=== PATIENT | male | born 1955 | race Caucasian/White ===

== ENCOUNTER 2020-07-06 11:37 | Outpatient (CLI) | payer OTHER, SELFPAY ==
--- NOTE | ~2020-07-06 | NM_ITS ---
EXAMINATION: NM parathyroid w imaging DATE: 07/06/2020 14:28 INDICATION: Hyperparathyroidism. TECHNIQUE: 20 mCi Tc99m sestamibi was administered intravenously. Anterior images of the neck were ob tained immediately and at 2 hours. SPECT images of the neck were obtained. COMPARISON: None. FINDINGS: Persistent diffusely increased activity in the area of the thyroid may be secondary to para thyroid hyperplasia. No focal increased activity to suggest an adenoma. IMPRESSION: 1. No evidence of a parathyroid adenoma. Diffusely increased activity in the area of the thyroid may be secondary to parathyroid hyperplasia. Reviewed, dictated and finalized at location B. IMPRESSION: 1. No evidence of a parathyroid adenoma. Diffusely increased activity in the ar ea of the thyroid may be secondary to parathyroid hyperplasia.
== END 2020-07-06 11:38 | disposition home or self-care (01) ==
PROVIDERS: PCP Internal Medicine; Visit Provider Internal Medicine Endocrinology, Diabetes & Metabolism
DX: E21.3 Hyperparathyroidism, unspecified (principal); N20.0 Calculus of kidney; N40.1 Benign prostatic hyperplasia with lower urinary tract symptoms
CPT/HCPCS: 78070; A9500

== ENCOUNTER 2020-07-12 09:32 | Outpatient (CLI) | payer OTHER, SELFPAY ==
--- NOTE | ~2020-07-12 | DEXA_ITS ---
Bone Density Report Name: Josue Lopez Age: 64 Sex: Male Ethnicity: White Date of : 1955 Indication: hyperparathyroidism; height loss; Referring Provider: Shonna Beatty Study: Bone densitometry was performed. Exam Date: July 12, 2020 Accession number: [id number] Bone Density: Region BMD T-score Z-score Classification AP Spine (L1, L4) 1.071 -0.1 0.6 Normal Femoral Neck (Left) 0.707 -1.6 -0.6 Osteopenia Total Hip (Left) 0.951 -0.5 0.0 Normal Total Hip Bilateral Avg 0.958 -0.5 0.1 Normal Femoral Neck (Right) 0.691 -1.8 -0.7 Osteopenia Total Hip (Right) 0.965 -0.4 0.1 Normal World Health Organization criteria for BMD impression classify patients as: Normal (T-score at or above -1.0), Osteopenia (T-score between -1.0 and -2.5), or Osteoporosis (T-score at or below -2.5). 10-year Fracture Risk(1): Major Osteoporotic Fracture 6.7% Hip Fracture 1.1% Reported Risk Factors: [place] (), Neck BMD=0.691, BMI=28.7 (1) FRAX(R) Version 3.08. Fracture probability calculated for an untreated patient. Fracture probability may be lower if the patient has received treatment. Clinical Information Provided by Patient: Has used the following medications: Vitamin D Has the following medical conditions: Hyperparathyroidism Patient maximum height was 68 Does not regularly consume dairy products Drinks caffeinated beverages Impression: The patient has low bone mass, based on the Right Femoral Neck T-score. The patient has an estimated ten-year risk of hip fracture of 1.1% and an estimated ten-year risk of major fracture of 6.7%, based on the WHO FRAX algorithm. Discussion: BONE DENSITY IS LOW AT ONE OR MORE SKELETAL SITES. This patient's lowest T-score is low at one or more skeletal sites. It meets the World Health Organization's (WHO) criteria for ?low bone mass? (T-score between -1.0 and -2.5). The patient's 10-year risk of fracture as calculated by FRAX is less than the threshold where pharmacological therapy is recommended by the National Osteoporosis Foundation (NOF). However, all treatment decisions require clinical judgment and consideration of individual patient factors, including patient preferences, comorbidities, previous drug use, risk factors not captured in the FRAX model (e.g., frailty, falls, vitamin D deficiency, increased bone turnover, interval significant decline in bone density) and possible under or overestimation of fracture risk by FRAX. The patient should follow a healthful lifestyle (good nutrition with adequate calcium and vitamin D, and appropriate weight-bearing exercise). Follow-Up: Consider repeating this study in 2 to 3 years to reassess this patient's status, or sooner if there is some new clinical indication. Reported by: STACEY on 07/12/2020 10:00:00 AM.
== END 2020-07-12 09:33 | disposition home or self-care (01) ==
LOC: ANHIMG 09:35
PROVIDERS: PCP Internal Medicine; Visit Provider Internal Medicine Endocrinology, Diabetes & Metabolism
DX: E21.3 Hyperparathyroidism, unspecified (principal); N20.0 Calculus of kidney; N40.1 Benign prostatic hyperplasia with lower urinary tract symptoms; M85.852 Other specified disorders of bone density and structure, left thigh; M85.851 Other specified disorders of bone density and structure, right thigh
CPT/HCPCS: 77080

== ENCOUNTER 2022-11-30 11:54 | Outpatient (CLI) | payer MEDICARE, SELFPAY ==
[2022-11-30 12:03] LABS: Hematocrit 42.5 % (42.0-52.0); Hemoglobin 14.3 g/dL (14.0-18.0); Mean Corpuscular HGB Conc 33.6 g/dl (32-36); Mean Corpuscular Hemoglobin 27.5 pg (26-34); Mean Corpuscular Volume 81.7 fl (80-100); Mean Platelet Volume 8.6 fl (7.4-10.4); Platelet Count Result 243 k/mm3 (150-375); Red Cell Distribution Width 17.6 % (11.5-14.5); White Blood Count 9.3 K/mm3 (4.5-10.0)
[2022-11-30 13:19] LABS: Iron 50 ug/dL (49-181)
[2022-11-30 13:42] LABS: Percent Iron Saturation 13 % (20-50)
== END 2022-11-30 11:55 | disposition home or self-care (01) ==
LOC: ANHLAB 11:55
PROVIDERS: PCP Internal Medicine; Visit Provider Internal Medicine Hematology & Oncology
DX: D64.9 Anemia, unspecified (principal)
CPT/HCPCS: 36415; 82728; 83540; 83550; 85027

== ENCOUNTER 2023-10-23 14:32 | Outpatient (CLI) | payer MEDICARE, SELFPAY ==
--- NOTE | ~2023-10-23 | DEXA_ITS ---
Bone Density Report Name: TAYLOR CHERY Age: 68 Sex: Male Ethnicity: White Date of : 1955 Indication: height loss; Referring Provider: COLLEEN LUONG Study: Bone densitometry was performed. Exam Date: October 23, 2023 Accession number: [id number] Bone Density: Region BMD T-score Z-score Classification AP Spine(L1, L4) 1.188 0.9 1.8 Normal Femoral Neck (Left) 0.762 -1.2 -0.1 Osteopenia Total Hip (Left) 0.981 -0.3 0.3 Normal Femoral Neck (Right) 0.720 -1.5 -0.4 Osteopenia Total Hip (Right) 0.922 -0.7 -0.1 Normal Total Hip Mean 0.951 -0.5 0.1 Normal World Health Organization criteria for BMD impression classify patients as: Normal (T-score at or above -1.0), Osteopenia (T-score between -1.0 and -2.5), or Osteoporosis (T-score at or below -2.5). 10-year Fracture Risk(1): Major Osteoporotic Fracture 6.4% Hip Fracture 1.2% Reported Risk Factors: [place] (), Neck BMD=0.720, BMI=29.5 (1) FRAX(R) Version 3.08. Fracture probability calculated for an untreated patient. Fracture probability may be lower if the patient has received treatment. Previous Exams: Region Exam Age BMD T-score BMD Change BMD Change Date g/cm2 vs Baseline vs Previous AP Spine (L1,L4) 10/23/2023 68 1.188 0.9 0.117 (10.9%)* 0.117 (10.9%)* 07/12/2020 64 1.071 -0.1 Total Hip(Left) 10/23/2023 68 0.981 -0.3 0.030 (3.1%)* 0.030 (3.1%)* 07/12/2020 64 0.951 -0.5 Total Hip(Right) 10/23/2023 68 0.922 -0.7 -0.044 (-4.5%) -0.044 (-4.5%) 07/12/2020 64 0.965 -0.4 *Denotes significance at 95% confidence level, LSC for AP Spine = 0.022 g/cm2, LSC for Total Hip = 0.027 g/cm2 Clinical Information Provided by Patient: Has used the following medications: Vitamin D Patient maximum height was 68 Drinks caffeinated beverages Impression: The patient has low bone mass, based on the Right Femoral Neck T-score. The patient has an estimated ten-year risk of hip fracture of 1.2% and an estimated ten-year risk of major fracture of 6.4%, based on the WHO FRAX algorithm. The BMD for the Total Hip(Right) decreased, changing by -4.5% since the last DXA exam. Discussion: BONE DENSITY IS LOW AT ONE OR MORE SKELETAL SITES. This patient's lowest T-score is low at one or more skeletal sites. It meets the World Health Organization's (WHO) criteria for ?low bone mass? (T-score between -1.0 and -2.5). The patient's 10-year risk of fracture as ca
== END 2023-10-23 14:33 | disposition home or self-care (01) ==
LOC: ANHIMG 14:35
PROVIDERS: PCP Family Medicine; Visit Provider Family Medicine
DX: M85.88 Other specified disorders of bone density and structure, other site (principal); M85.852 Other specified disorders of bone density and structure, left thigh; M85.851 Other specified disorders of bone density and structure, right thigh
CPT/HCPCS: 77080

== ENCOUNTER 2024-04-28 11:33 | Outpatient (CLI) | payer MEDICARE, SELFPAY ==
[2024-04-28 11:49] LABS: Basophils Percent Auto 0.6 % (0.2-1.2); Eosinophils Absolute Auto 0.2 K/mm3 (0-0.3); Eosinophils Percent Auto 3.1 % (0-4.4); Hematocrit 43.4 % (42.0-52.0); Hemoglobin 15.7 g/dL (14.0-18.0); Immature Granulocyte Absolute 0.05 K/mm3 (0.00-0.031); Lymphocytes Percent Auto 9.7 % (18.3-44.2); Mean Corpuscular HGB Conc 36.2 g/dl (32-36); Mean Corpuscular Hemoglobin 32.4 pg (26-34); Mean Corpuscular Volume 89.7 fl (80-100); Monocytes Absolute Auto 0.6 K/mm3 (0.1-0.6); Monocytes Percent Auto 12.5 % (2.6-8.5); Neutrophils Absolute Auto 3.8 K/mm3 (1.3-6.7); Neutrophils Percent Auto 73.1 % (45.5-73.1); Platelet Count Result 202 k/mm3 (150-375); Red Blood Count 4.84 M/mm3 (4.6-6.20); Red Cell Distribution Width 13.2 % (11.5-14.5); White Blood Count 5.1 K/mm3 (4.5-10.0)
[2024-04-28 12:42] LABS: Iron 110 ug/dL (49-181)
[2024-04-28 12:46] LABS: Alanine Aminotransferase 25 U/L (6-50); Albumin Level 4.2 g/dL (3.5-5.1); Alkaline Phosphatase 54 U/L (38-126); Anion Gap 7 mmol/L (4-12); Aspartate Amino Transferase 27 U/L (17-59); Bilirubin,Total 0.9 mg/dL (0.2-1.3); Blood Urea Nitrogen 12 mg/dL (9-20); Calcium 9.2 mg/dL (8.4-10.2); Carbon Dioxide 25 mmol/L (22-30); Chloride 102 mmol/L (98-107); Estimated Glomerular Filt Rate > 60; Glucose 99 mg/dL (65-110); Potassium 3.5 mmol/L (3.4-5.0); Sodium 134 mmol/L (137-145)
[2024-04-28 12:53] LABS: Percent Iron Saturation 35 % (20-50)
== END 2024-04-28 11:34 | disposition home or self-care (01) ==
LOC: ANHLAB 11:35
PROVIDERS: PCP Family Medicine; Visit Provider Internal Medicine Hematology & Oncology
DX: D64.9 Anemia, unspecified (principal)
CPT/HCPCS: 36415; 80053; 82728; 83540; 83550; 85025

== ENCOUNTER 2025-06-02 10:47 | Outpatient (CLI) | payer MEDICARE, SELFPAY ==
--- OUTSIDE RECORDS SUMMARY | 2025-06-02 10:53 | XMS_ITS | Encounter Summary ---
Author Organization [facility] Address [address] [place] [address] Phone Care Team Providers Care Cylinder Grinder Name Role Phone Zeeshan Starks DO Primary Care Provider [phone] Aj Murdock MD Unavailable [phone] Andrew Andrade MD Primary Care Provider [phone] Reason for Visit * Reason Comments Medication Refill Encounter Details Date Type Department Care Team (Late st Contact Info) Description 09/09/2023 Refill [facility] [address]2 [place] [phone] Aj Murdock MD [address] [place] [address] Medication Refill Social History Tobacco Use Types Packs/Day Years Used Date Smoking Tobacco: Former Cigarettes 1 25 1 12/04/1976 - 10/04/2002 Smokeless Tobacco: Never Alcohol Use Standard Drinks/Week Comments Yes 0 (1 standard drink = 0.6 oz pur e alcohol) Drinks weekend Sexually Active Control Partners Comments Yes Sex and Gender Information Value Date Recorded Sex Assigned at Not on file Legal Sex Male 11:38 PM CDT Gender Identity Not on file Sexual Orientation Not on file 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 Routing to provider due to Dr. Murdock is out of office. Please review. Requested Prescriptions Pending Prescriptions Disp Refills azaTHIOprine (IMURAN) 50 MG Tablet [Pharmacy Med Name: azaTHIOprine 50 MG Oral Tablet] 90 Tablet 0 Sig: Take 3 tablets by mouth once daily Not Delegated - Off Protocol Failed - 09/09/2023 9:44 AM Failed - This refill cannot be delegated Passed - Visit with relevant provider in past 12 months or upcoming 90 days Recent Visits Date Type Provider Dept 03/28/23 Office Visit Aj Murdock MD [facility] Showing recent visits within past 365 days and meeting all other requirements Future Appointments No visits were found meeting these conditions. Showing future appointments within next 90 days and meeting all other requirements documented in this encounter Plan of Treatment Not on file documented as of this encounter Visit Diagnoses Diagnosis Crohn's disease with complication, unspecified gastrointestinal tract location (HCC) documented in this encounter Care Teams Cylinder Grinder Relationship Specialty Start Date End Date Zeeshan Starks DO [address] [address] PCP - General Internal Medicine 08/28/19 01/07/25 Andrew Andrade MD [address] [place] [address] PCP - General Family Medicine 01/08/25 Aj Murdock MD [address] [place] [address] Consulting Physician Gastroenterology 08/23/22 documented as of this encounter
--- OUTSIDE RECORDS SUMMARY | 2025-06-02 10:53 | XMS_ITS | Encounter Summary ---
Author Organization [facility] Address [address] [place] [address] Phone Care Team Providers Care Level Vial Sealer Name Role Phone Zeeshan Starks DO Primary Care Provider [phone] Aj Murdock MD Unavailable [phone] Andrew Andrade MD Primary Care Provider [phone] Reason for Visit * Reason Comments Medication Refill Encounter Details Date Type Department Care Team (Late st Contact Info) Description 01/22/2024 Refill [facility] - Gastroenter[facility] [address] [place] [phone] Huma Ulloa APRN, TURFGRASS MANAGEMENT PROFESSOR [address] [place] [address] Medication Refill Social History Tobacco Use Types [...] 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 Requested Prescriptions Pending Prescriptions Disp Refills azaTHIOprine (IMURAN) 50 MG Tablet [Pharmacy Med Name: azaTHIOprine 50 MG Oral Tablet] 270 Tablet 0 Sig: Take 3 tablets by mouth once daily Not Delegated - Off Protocol Failed - 01/22/2024 7:27 PM Failed - This refill cannot be delegated Passed - Visit with relevant provider in past 12 months or upcoming 90 days Recent Visits Date Type Provider Dept 03/28/23 Office Visit Aj Murdock MD [facility] Showing recent visits within past 365 days and meeting all other requirements Future Appointments No visits were found meeting these conditions. Showing future appointments within next 90 days and meeting all other requirements RY CONTROL OPERATOR HELPER documented in this encounter Plan of Treatment Not on file documented as of this encounter Visit Diagnoses Diagnosis Crohn's disease with complication, unspecified gastrointestinal tract location (HCC) documented in this encounter Care Teams Level Vial Sealer Relationship Specialty Start Date End Date Zeeshan Starks DO [address] [facility] [address] [address] PCP - General Internal Medicine 08/28/19 01/07/25 Andrew Andrade MD [address] [place] [address] PCP - General Family Medicine 01/08/25 Aj Murdock MD [address] [place] [address] Consulting Physician Gastroenterology 08/23/22 documented as of this encounter
--- OUTSIDE RECORDS SUMMARY | 2025-06-02 10:53 | XMS_ITS | Encounter Summary ---
Author Organization [facility] Address [address] [place] [address] Phone Care Team Providers Care Byproduct Engineer Name Role Phone Zeeshan Starks DO Primary Care Provider Aj Murdock MD Unavailable [phone] Andrew Andrade MD Primary Care Provider [phone] Reason for Visit * Reason Comments Medication Refill Encounter Details Date Type Department Care Team (Late st Contact Info) Description 04/25/2023 Refill [facility] - Gastroenterology 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 No / Unsure 03/28/2023 12:59 PM CDT documented as of this encounter Miscellaneous Notes * Telephone Encounter - Yana Enriquez RN - 04/25/2023 1:33 PM CDT Medication failed the protocol, provider to review and approve the medication order if appropriate. Requested Prescriptions Pending Prescriptions Disp Refills azaTHIOprine (IMURAN) 50 MG Tablet [Pharmacy Med Name: azaTHIOprine 50 MG Oral Tablet] 90 Tablet 0 Sig: Take 3 tablets by mouth once daily Not Delegated - Off Protocol Failed - 04/25/2023 9:11 AM Failed - This refill cannot be delegated Passed - Visit with relevant provider in past 12 months or upcoming 90 days Recent Visits Date Type Provider Dept 03/28/23 Office Visit Aj Murdock MD [facility] [place] 08/23/22 Office Visit Aj Murdock MD [facility] [place] 07/12/22 Office Visit Aj Murdock MD [facility] [place] Showing recent visits within past 365 days [...] (HCC) documented in this encounter Care Teams Byproduct Engineer Relationship Specialty Start Date End Date Zeeshan Starks DO [address] [facility] [address] [address] PCP - General Internal Medicine 08/28/19 01/07/25 Andrew Andrade MD [address] [place] [address] PCP - General Family Medicine 01/08/25 Aj Murdock MD [address] [place] [address] Consulting Physician Gastroenterology 08/23/22 documented as of this encounter
--- OUTSIDE RECORDS SUMMARY | 2025-06-02 10:53 | XMS_ITS | Referral Summary ---
Author Organization [facility] Address [address] [place] [address] Care Team Providers Care Manager Technical Services Name Role Phone Andrew Andrade MD Primary Care Provider [phone] Encounters Date Type Department Care Team Description 05/19/2025 Telephone [facility] Gastroenterology at [address] [place] [phone] Kina Finney Prep Instructions 04/15/2025 Telephone [facility] Gastroenterology at [address] [place] [address] Kathryn Morel MA Schedule Colonoscopy 04/15/2025 11:15 AM CDT Office Visit [facility] Gastroenterology at [address] [place] [phone] Valeriy Carter NP Crohn's disease of both small and large intestine without complication (HCC) (Primary Dx); Gastroesophageal reflux disease, unspecified whether esophagitis present; Tubular adenoma of colon from Last 3 Months Allergies No known active allergies Medications multivitamin with minerals tablet Take 1 tablet by mouth daily Active modafiniL (PROVIGIL) 200 mg tablet Take 1 tablet (200 mg total) by mouth every morning 03/24/2025 Active omega-3 fatty acids (LOVAZA) 1 gram capsule Take 1 capsule (1 g total) by mouth daily Active ZINC OXIDE, BULK, MISC Take 1,000 mcg by mouth Active azaTHIOprine (IMURAN) 50 mg tablet Take 1 tablet (50 mg total) by mouth 3 (three) times a day with meals Active icosapent ethyL (VASCEPA) 1 gram capsule Take 2 capsules (2 g total) by mouth 2 (two) times a day Active ferrous sulfate ER 324 mg (65 mg iron) EC tabletIndicatio ns:Iron Deficiency Anemia Take 65 mg by mouth Active B complex 04-nqfoo-R-biot -zinc 3-801-513-50 qc-de-ayi-mg tablet Take by mouth Active ergocalciferol (VITAMIN D) 50,000 unit capsule Take 1 capsule (50,000 Units total) by mouth once a week Active lisinopril-hydr oCHLOROthiazide (ZESTORETIC) 10-12.5 mg per tablet Take 1 tablet by mouth daily 02/14/2025 Active meloxicam (MOBIC) 7.5 mg tablet TAKE 1 TABLET BY MOUTH ONCE DAILY DIRECTED WITH FOOD Active omeprazole (PriLOSEC) 40 mg capsule Take 1 capsule (40 mg total) by mouth daily Active Active Problems Problem Noted Date Diagnosed Date Crohn's disease of both smal l and large intestine without complication 04/15/2025 Low bone mass 04/04/2022 Hypercalcemia 09/13/2020 Hyperparathyroidism 08/26/2020 Renal stone 01/08/2020 Rotator cuff tear 11/03/2015 Resolved Problems Problem Noted Date Diagnosed Date Resolved Date Crohn's disease of ileum without complication 04/15/20 25 04/15/2025 Crohn's disease without complication 08/31/2020 04/15/2025 Immunizations Immunization Administration Dates Next Due Influenza, Quadrivalent, Hig h Dose, Preservative Free, Intrr 09/06/2022,09/06/2021 Influenza, Quadrivalent, Rec ombinant, Egg Free, Preservative Free, Intramuscular 09/01/2020,09/04/2019 Influenza, Trivalent, High D ose, Split, Preservative Free, Intramuscular 12/17/2024 Pneumococcal Polysaccharide PPV23 05/24/2023 Tdap 12/17/2024 ZOSTER LIVE 05/24/2023 ZOSTER Recombinant 06/17/2024 Social History Tobacco Use Types Packs/Day Years Used Date Smoking Tobacco: Never Smokeless Tobacco: Never Tobacco Cessation:Counseling Given: Not Answered Sex and Gender Information Value Date Recorded Sex Assigned at Not on file Legal Sex Male 5:23 PM [employer] Gender Identity Not on file Sexual Orientation Not on file Last Filed Vital Signs Vital Sign Reading Time Taken Comments Blood Pressure 154/94 04/15/2025 11:17 AM CDT Pulse 65 04/15/2025 11:17 AM CDT Temperature - - Respiratory Rate - - Oxygen Saturation 95% 04/15/2025 11: 17 AM CDT Inhaled Oxygen Concentration - - Weight 81.1 kg (178 lb 12.8 oz) 025 11:17 AM CDT Height 172.7 cm (5' 8) 04/15/2025 11:1 7 AM CDT Body Mass Index 27.19 04/15/2025 11:17 AM CDT Plan of Treatment Upcoming Encounters Date Type Department Care Team (Late st Contact Info) Description 06/30/2025 12:00 PM CDT Hospital Encounter [address] [address] Go Charles DO [address] [facility] [place] [address] 06/30/2025 12:00 PM CDT - 06/30/2025 12:30 PM CDT Surgery [address] [address] Go Charles DO [address] [facility] [place] [address] COLONOSCOPY Scheduled Procedures Name Priority Associated Diagnoses Date/Ti me COLONOSCOPY Crohn's disease of both small and large intestine without complication (HCC) 06/30/2025 12:00 PM CDT Insurance [employer] MEDICARE Care Teams Manager Technical Services Relationship Specialty Start Date End Date Andrew Andrade MD [address] [place] [address] PCP - General Family Practice 04/15/25
--- OUTSIDE RECORDS SUMMARY | 2025-06-02 10:53 | XMS_ITS | Encounter Summary ---
Author Organization [facility] Address [address] [place] [address] Care Team Providers Care Tare Worker Name Role Phone Andrew Andrade MD Primary Care Provider [phone] Encounter Details Date Type Department Care Team (Late Contact Info) Description 06/02/2025 Orders Only [facility] Oncology and Hematology - [address] [place] [address] Jun Stuart MD [address] [place] [phone] Chronic anemia (Primary Dx) Social History Tobacco Use Types Packs/Day Years Used Date Smoking Tobacco: Former Cigarettes 1 20 0 11/25/1981 - 11/25/2001 Smokeless Tobacco: Never Alcohol Use Standard Drinks/Week Comments Yes 0 (1 standard drink = 0.6 oz pur e alcohol) occasionally Sex and Gender Information Value Date Recorded Sex Assigned at Not on file Legal Sex Male 4:48 PM CDT Gender Identity Not on file Sexual Orientation Not on file documented as of this encounter Plan of Treatment Upcoming Encounters Date Type Department Care Team (Late st Contact Info) Description 06/10/2025 3:45 PM CDT Office Visit [facility] Oncology and Hematology - [address] [place] [address] Jun Stuart MD [address] [place] [address] Scheduled Orders Name Type Priority Associated Diagnoses Orde r Schedule CBC WITH DIFFERENTIAL Lab Stat Chronic anemia Expected: 06/02/2025, Expires: 06/02/2026 IRON, TIBC, AND PERCENT SATURATION Lab Stat Chronic anemia Expected: 06/02/2025, Expires: 06/02/2026 documented as of this encounter Visit Diagnoses Diagnosis Chronic anemia- Primary Anemia, unspecified documented in this encounter Care Teams Tare Worker Relationship Specialty Start Date End Date Andrew Andrade MD [address] [place] [phone] PCP - General Family Practice 07/11/23 documented as of this encounter
--- OUTSIDE RECORDS SUMMARY | 2025-06-02 10:53 | XMS_ITS | Encounter Summary ---
Author Organization [facility] Address [address] [place] [address] Phone Care Team Providers Care Analytical Strategist Name Role Phone Zeeshan Starks DO Primary Care Provider [phone] Aj Murdock MD Unavailable [phone] Andrew Andrade MD Primary Care Provider [phone] Reason for Visit * Reason Comments Medication Refill Encounter Details Date Type Department Care Team (Late st Contact Info) Description 10/20/2023 Refill [facility] - Gastroenter[facility] [address] [place] [phone] Huma Ulloa APRN, TAPE FASTENER MACHINE OPERATOR [address] [place] [address] Medication Refill Social History Tobacco Use Types [...] 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 Requested Prescriptions Pending Prescriptions Disp Refills azaTHIOprine (IMURAN) 50 MG Tablet [Pharmacy Med Name: azaTHIOprine 50 MG Oral Tablet] 90 Tablet 0 Sig: Take 3 tablets by mouth once daily Not Delegated - Off Protocol Failed - 10/20/2023 1:19 PM Failed - This refill cannot be delegated Passed - Visit with relevant provider in past 12 months or upcoming 90 days Recent Visits Date Type Provider Dept 03/28/23 Office Visit Aj Murdock MD [facility] Showing recent visits within past 365 days and meeting all other requirements Future Appointments No visits were found meeting these conditions. Showing future appointments within next 90 days and meeting all other requirements GUITAR TEACHER documented in this encounter Plan of Treatment Not on file documented as of this encounter Visit Diagnoses Diagnosis Crohn's disease with complication, unspecified gastrointestinal tract location (HCC) documented in this encounter Care Teams Analytical Strategist Relationship Specialty Start Date End Date Zeeshan Starks DO [address] [facility] [address] [address] PCP - General Internal Medicine 08/28/19 01/07/25 Andrew Andrade MD [address] [place] [address] PCP - General Family Medicine 01/08/25 Aj Murdock MD [address] [place] [address] Consulting Physician Gastroenterology 08/23/22 documented as of this encounter
--- OUTSIDE RECORDS SUMMARY | 2025-06-02 10:53 | XMS_ITS | Clinical Summary ---
Author Organization [facility] Medical Office Building B Address [address] [place] [address] Care Team Providers Care Security Control Assessor Name Role Phone Andrew Andrade MD Primary Care Provider [phone] Allergies No known active allergies Medications multivitamin [...] 65 mg by mouth Active B complex 59-bqtvn-C-biot -zinc [phone] xi-wb-ggu-mg tablet Take by mouth Active ergocalciferol (VITAMIN [...] 04/15/2025 Crohn's disease without complication 08/31/2020 04/15/2025 Encounters Date Type Department Care Team Description 05/19/2025 Telephone [facility] Gastroenterology at [address] [place] [address] Kina Finney Prep Instructions 04/15/2025 11:15 AM CDT Office Visit [facility] Gastroenterology at [address] [place] [address] Valeriy Carter NP Crohn's disease of both small and large intestine without complication (HCC) (Primary Dx); Gastroesophageal reflux disease, unspecified whether esophagitis present; Tubular adenoma of colon 04/15/2025 Telephone [facility] Gastroenterology at [address] [place] [address] Kathryn Morel MA Schedule Colonoscopy from Last 3 Months Immunizations Immunization Administration Dates Next Due Influenza, Quadrivalent, Hig h Dose, Preservative Free, Intrr 09/06/2022,09/06/2021 Influenza, Quadrivalent, Rec ombinant, Egg Free, Preservative Free, Intramuscular 09/01/2020,09/04/2019 Influenza, Trivalent, High D ose, Split, Preservative Free, Intramuscular 12/17/2024 Pneumococcal Polysaccharide PPV23 05/24/2023 Tdap 12/17/2024 ZOSTER LIVE 05/24/2023 ZOSTER Recombinant 06/17/2024 Surgical History Surgery Date Site/Laterality Comments COLONOSCOPY CYSTOSCOPY SHOULDER ARTHROSCOPY Left x2 CYSTOSCOPY INSERTION / REMOVAL STENT / STONE BACK SURGERY CARPAL TUNNEL RELEASE Bilateral THYROIDECTOMY Left Medical History Medical History Date Comments Crohn's disease (HCC) Hyperparathyroidism Adenomatous colon polyp Kidney stones HTN (hypertension) Spinal stenosis Hypothyroid GERD (gastroesophageal reflux disease) Vitamin D deficiency Low bone mass Social History Tobacco Use Types Packs/Day Years Used Date Smoking Tobacco: Never Smokeless Tobacco: Never Tobacco Cessation:Counseling Given: Not Answered Sex and Gender Information Value Date Recorded Sex Assigned at Not on file Legal Sex Male 5:23 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 Gender Identity Not on file Sexual Orientation Not on file Obstetrics History Last Filed Vital Signs Vital Sign Reading [...] Description 06/30/2025 12:00 PM CDT Hospital Encounter [address] [address] Go Charles DO [address] [facility] [address] [place] [address] 06/30/2025 12:00 PM CDT - 06/30/2025 12:30 PM CDT Surgery [address] [address] Go Charles DO [address] [facility] [address] [place] [address] COLONOSCOPY Scheduled Procedures Name Priority Associated Diagnoses Date/Ti me COLONOSCOPY Crohn's disease of both small and large intestine without complication (HCC) 06/30/2025 12:00 PM CDT Health Maintenance Due Date Last Done Comments Colon Cancer Screening-Colonoscopy 1955 Depression Screening 1955 Fall Risk Assessment 1955 Hepatitis C Screening 1955 Prostate Cancer Screening-PSA 1955 Hepatitis B Screening 1973 Well Visit 65+ 2020 Pneumococcal vaccine 65+ (2 of 2 - PCV) 05/24/2024 05/24/2023 Covid-19 Vaccine (4 - 2023-2 5 season) 2024 11/29/2021, 04/03/2021, 03/13/2021 Zoster Vaccine (2 of 2) 08/12/2024 06/17/2024, 05/24 DTaP/Tdap/Td Vaccine (2 - Td or Tdap) 12/17/2034 12/17/2024 Influenza Vaccine Completed 12/17/2024, , 09/06/2021, Additional history exists Insurance AETNA MEDICARE Care Teams Security Control Assessor Relationship Specialty Start Date End Date Andrew Andrade MD [address] [place] [address] PCP - General Family Practice 04/15/25
--- OUTSIDE RECORDS SUMMARY | 2025-06-02 10:53 | XMS_ITS | Clinical Summary ---
Author Organization [facility] Address [address] [place] [address] Phone Care Team Providers Care Blueprinting Machine Operator Name Role Phone Aj Murdock MD Unavailable [phone] Andrew Andrade MD Primary Care Provider [phone] Allergies No known active allergies Medications levothyroxine (SYNTHROID) 100 MCG Tablet Take 100 mcg by mouth every morning. Active omeprazole (PRILOSEC) 40 MG CAPSULE DELAYED RELEASE Take 40 mg by mouth every morning. Active MULTIPLE VITAMIN PO Take 1 Tablet by mouth daily. HOLD FOR 5 DAYS PRIOR TO PROCEDURE Active lisinopril-hydroCHLO ROthiazide (PRINZIDE, ZESTORETIC) 10-12.5 MG Tablet Take 1 Tab by mouth every morning. Active Cyanocobalamin (VITAMIN B 12 PO) Take 1,000 mcg by mouth every morning. GUMMIES Active Vitamin D3 (CHOLECALCIFEROL) 125 MCG Tablet Take 1 Cap by mouth every morning. 07/27/20 20 Active Icosapent Ethyl 1 g Capsule Take by mouth. Active folic acid (FOLVITE) 1 MG Tablet Take 1 Tablet by mouth daily. 90 Tablet 1 11/06/20 22 Active azaTHIOprine (IMURAN) 50 MG TabletIndications:Cr ohn's disease with complication, unspecified gastrointestinal tract location (HCC) Take 3 tablets by mouth once daily 270 Tablet 03/12/20 25 Active Active Problems Problem Noted Date Diagnosed Date Long-term use of high-risk medication 04/04/2022 Low bone mass 04/04/2022 Crohn's disease without complication 08/31/2020 Renal stone 01/08/2020 Rotator cuff tear 11/03/2015 Encounters Date Type Department Care Team Description 03/11/2025 Refill [facility] - Gastroenterology [facility] [address] [place] [address] Huma Ulloa APRN, CREATIVE SERVICES WRITER Medication Refill from Last 3 Months Immunizations Immunization Administration Dates Next Due Influenza, High-dose, Quadrivalent 09/06/2021 Influenza, Recombinant, Quadrivalent,injectable, Pf 09/01/2020,09/04/2019 Family History Medical History Relation Name Comments Cancer Father colon Diabetes Father Hypertension Father Osteoarthritis Father Cancer Mother Lung Hypertension Mother Osteoarthritis Mother Relation Name Status Comments Father Mother Social History Tobacco Use Types Packs/Day Years Used Date Smoking Tobacco: Former Cigarettes 1 25 1 12/04/1976 - 10/04/2002 Smokeless Tobacco: Never Tobacco Cessation:Counseling Given: Not Answered Alcohol Use Standard Drinks/Week Comments Yes 0 (1 standard drink = 0.6 oz pur e alcohol) Drinks weekend Sexually Active Control Partners Comments Yes Sex and Gender Information Value Date Recorded Sex Assigned at Not on file Legal Sex Male 11:38 PM CDT Gender Identity Not on file Sexual Orientation Not on file 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 Not on file Not on file Last Filed Vital Signs Vital Sign Reading Time Taken Comments Blood Pressure 140/89 01/08/2025 10:30 PM AQUATICS ASSISTANT DEPARTMENT HEAD Pulse 87 01/08/2025 10:30 PM AQUATICS ASSISTANT DEPARTMENT HEAD Temperature 36.3 C (97.4 F) 01/08/2025 7:44 PM AQUATICS ASSISTANT DEPARTMENT HEAD Respiratory Rate 18 01/08/2025 10:30 PM AQUATICS ASSISTANT DEPARTMENT HEAD Oxygen Saturation 100% 01/08/2025 10:30 PM AQUATICS ASSISTANT DEPARTMENT HEAD Inhaled Oxygen Concentration - - Weight 79.4 kg (175 lb) 01/08/2025 7:44 PM AQUATICS ASSISTANT DEPARTMENT HEAD Height 172.7 cm (5' 8) 01/08/2025 7:44 PM AQUATICS ASSISTANT DEPARTMENT HEAD Body Mass Index 26.61 01/08/2025 7:44 PM AQUATICS ASSISTANT DEPARTMENT HEAD Plan of Treatment Health Maintenance Due Date Last Done Comments Cologuard 2000 Immunochemical Fecal Occult Blood 2000 PSA Discussion 2010 Respiratory Syncytial Virus (RSV) Immunization (Adult) (1 - Risk 60-74 years 1-dose series) 2015 AAA Screening Ultrasound 2020 Colonoscopy 05/22/2023 05/22/2022, 12/2019, 08/28/2019, Additional history exists Colorectal Cancer Screening 05/22/2023 Pneumococcal Immunization (50+ years) (2 of 2 - PCV) 05/24/2024 05/24/2023 SARS-COV-2 Immunization (4 - season) 2024 11/29/2021, 04/03/2021, 03/13/2021 Zoster Immunization (2 of 2) 08/12/2024 06/17/2024, 05/24/2023 Influenza Immunization (#1) 07/26/202511/26, 09/06/2022, 09/06/2021, Additional history exists Hepatitis C Virus (HCV) Screening Completed 04/04/2022, 10/26/2020, 08/31/2020, Additional history exists Pneumococcal Immunization Combined Discontinued 05/24/2023 DTaP/Tdap/Td Immunization Discontinued 12/17/2024 TdaP Immunization Completed 12/17/2024 Hepatitis B Immunization Aged Out No longer eligible based on patient's age to complete this topic Human Papillomavirus (HPV) Immunization Aged Out No longer eligible based on patient's age to complete this topic Meningococcal Immunization (ACWY) Aged Out No longer eligible based on patient's age to complete this topic Rotavirus Immunization Aged Out No lo nger eligible based on patient's age to complete this topic Medical Devices Implanted Type Area Foreign Language Stenographer Device Identifier Shelf Expiration Date Model / Serial / Lot Stent Ureteral 6fr 2.1fr 26cm 2 Pigtail Curve 2 Durometer Taper Tip Loprfl Graduated Polaris Ultra - [id number] Implanted:Qty : 1 on 01/08/2020 by Brie Grimm MD at [facility] IMPLANT Left: Ureter [employer] 10/18/2022 [id number] / [id number] / [id number] Description:STRINGS ATTACHED Procedures Procedure Name Priority Date/Time Associated Diagnosis Comments HEPATITIS C ANTIBODY Routine 04/04/2022 10:56 AM CDT Crohn's disease without complication, unspecified gastrointestinal tract location (HCC) Long-term use of high-risk medication from Last 3 Months or Most Recently Relevant to Health Maintenance Results * HEPATITIS C ANTIBODY (04/04/2022 10:56 AM CDT) hepatitis C antibody 0.12 <1 S/CO [facility] ARCH [id number] 04/04/2022 9:55 PM CDT [facility] Comment: Signal/Cutoff ratio < 0.79 is Nondetected Signal/Cutoff ratio 0.80-0.99 is Grayzone Signal/Cutoff ratio > 0.99 is Detected Supplemental assays are recommended if signal/cutoff ratio is >/=1.00. Signal/cutoff ratio result >/= 5.00 is 97% predictive of positivity for recombinant immunoblot assay (RIBA) and will be reported to the [place] Department of Public Health as required. Blood Venipuncture / Unknown 04/04/2022 10:56 AM CDT 04/04/2022 10:56 AM CDT us Nirmala Joseph PAC CHEMISTRY ORDERABLES Allyson kelley Result [facility] [address] [place] [address], from Last 3 Months or Most Recently Relevant to Health Maintenance Insurance MEDICARE C AETNA Care Teams Blueprinting Machine Operator Relationship Specialty Start Date End Date Andrew Andrade MD [address] [place] [id number] PCP - General Family Medicine 01/08/25 Aj Murdock MD [address] [place] [address] Consulting Physician Gastroenterology 08/23/22
--- OUTSIDE RECORDS SUMMARY | 2025-06-02 10:53 | XMS_ITS | Clinical Summary ---
Author Organization [facility] Address [address] [place] [address] Care Team Providers Care Dog Catcher Name Role Phone Andrew Andrade MD Primary Care Provider [phone] Allergies No known active allergies Medications vit B uahzqhj-Q-favln ac-zinc 800 mcg- 12.5 mg Tablet Take 1,000 mcg by mouth. Active multivitamin (MULTIPLE VITAMIN ORAL) Take 1 Tablet by mouth daily. Active azaTHIOprine (IMURAN) 50 mg tablet TAKE 3 TABLETS BY MOUTH ONCE DAILY 10/26/2022 Active Cholecalciferol , Vitamin D3, 50 mcg (2,000 unit) Capsule Take 1 Capsule by mouth daily. 07/27/2020 Active levothyroxine 100 mcg tablet 10/29/2022 Acti ve lisinopril-hydr oCHLOROthiazide (ZESTORETIC) 10-12.5 mg tablet Take 1 Tablet by mouth daily. 10/26/2022 Active omeprazole (PriLOSEC) 40 mg Capsule, Delayed Release(E.C.) 09/20/2022 Activ e meloxicam (MOBIC) 7.5 mg tablet TAKE 1 TABLET BY MOUTH ONCE DAILY DIRECTED WITH FOOD 11/27/2022 Active predniSONE (DELTASONE) 10 mg tablet TAKE 2 TABLETS BY MOUTH ONCE DAILY FOR 5 DAYS THEN 1 ONCE DAILY FOR 5 DAYS THEN 1 EVERY OTHER DAY UNTIL GONE 11/27/2022 Active Active Problems No known active problems Encounters Date Type Department Care Team Description 06/02/2025 Orders Only [facility] - [place] [address] [place] [address] Jun Stuart MD Chronic anemia (Primary Dx) from Last 3 Months Family History Medical History Relation Name Comments No Known Problems Brother 1 Diabetes Brother 2 Heart Disease Brother 2 No Known Problems Daughter 1 Thyroid Cancer Daughter 2 Colon Cancer Father Diabetes Father Lung Cancer Mother No Known Problems Sister 1 No Known Problems Sister 2 No Known Problems Son Relation Name Status Comments Brother 1 Alive Brother 2 Alive Daughter 1 Alive Daughter 2 Alive Father Mother Sister 1 Alive Sister 2 Alive Son Alive Social History Tobacco Use Types Packs/Day Years Used Date Smoking Tobacco: Former Cigarettes 1 20 0 11/25/1981 - 11/25/2001 Smokeless Tobacco: Never Tobacco Cessation:Counseling Given: Not [...] Sign Reading Time Taken Comments Blood Pressure 143/93 05/08/2024 9:05 AM CDT Pulse 67 05/08/2024 9:03 AM CDT Temperature 36.4 C (97.6 F) 05/08/2024 9:03 AM CDT Respiratory Rate 14 05/08/2024 9:03 AM CDT Oxygen Saturation 96% 05/08/2024 9:03 AM CDT Inhaled Oxygen Concentration - - Weight 77.1 kg (170 lb) 05/08/2024 9:03 AM CDT Height 172.7 cm (5' 8) 11/01/2022 2:36 PM PBX MECHANIC Body Mass Index 25.85 11/01/2022 2:36 PM PBX MECHANIC Plan of Treatment Upcoming Encounters Date Type Department Care Team (Late st Contact Info) Description 06/10/2025 3:45 PM CDT Office Visit [facility] - [place] [address] [place] [address] Jun Stuart MD [address] [facility] [address] [place] [address] Health Maintenance Due Date Last Done Comments DTAP/TDAP/TD VACCINES (1 - Tdap) 1974 COLORECTAL SCREENING 2000 Colorectal Cancer Screening 2000 FIT-DNA Q 3 years 2000 FIT/FOBT Q 1 year 2000 Flex Sig/CT Colonography Q 5 years 2000 PNEUMOCOCCAL VACCINE 50+ YEA RS (1 of 1 - PCV) 2005 ZOSTER VACCINE (1 of 2) 2005 Medicare Advantage ([place]) Prev entative Visit/Annual Wellness Visit 11/25/2024 INFLUENZA VACCINE (#1) 2025 1, 09/01/2020, 09/04/2019 RSV VACCINE (60+ or ) (1 - 1-dose 75+ series) 2030 Insurance AETNA PPO MCR Care Teams Dog Catcher Relationship Specialty Start Date End Date Andrew Andrade MD [address] [place] [address] PCP - General Family Practice 07/11/23
--- OUTSIDE RECORDS SUMMARY | 2025-06-02 10:53 | XMS_ITS | Encounter Summary ---
Author Organization [facility] Address [address] [place] [address] Phone Care Team Providers Care Reclamation Kettle Tender Name Role Phone Zeeshan Starks DO Primary Care Provider [phone] Aj Murdock MD Unavailable [phone] Andrew Andrade MD Primary Care Provider [phone] Reason for Visit * Reason Comments Medication Refill Encounter Details Date Type Department Care Team (Late st Contact Info) Description 06/17/2023 Refill [facility] [address] [place] [address] Aj Mrudock MD [address] [place] [address] Medication Refill Social History Tobacco Use Types [...] 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 Requested Prescriptions Pending Prescriptions Disp Refills azaTHIOprine (IMURAN) 50 MG Tablet [Pharmacy Med Name: azaTHIOprine 50 MG Oral Tablet] 90 Tablet 0 Sig: Take 3 tablets by mouth once daily Not Delegated - Off Protocol Failed - 06/17/2023 10:41 AM Failed - This refill cannot be delegated Passed - Visit with relevant provider in past 12 months or upcoming 90 days Recent Visits Date Type Provider Dept 03/28/23 Office Visit Aj Murdock MD [facility] [place] 08/23/22 Office Visit Aj Murdock MD [facility] [place] 07/12/22 Office Visit Aj Murdock MD [facility] [place] Showing recent visits within past 365 days [...] (HCC) documented in this encounter Care Teams Reclamation Kettle Tender Relationship Specialty Start Date End Date Zeeshan Starks DO [address] [facility] [address] [address] PCP - General Internal Medicine 08/28/19 01/07/25 Andrew Andrade MD [address] [place] [id number] PCP - General Family Medicine 01/08/25 Aj Murdock MD [address] [place] [address] Consulting Physician Gastroenterology 08/23/22 documented as of this encounter
--- OUTSIDE RECORDS SUMMARY | 2025-06-02 10:53 | XMS_ITS | Encounter Summary ---
Author Organization [facility] Address [address] [place] [address] Phone Care Team Providers Care Parachutist/Combatant Diver Qualified Name Role Phone Zeeshan Starks DO Primary Care Provider [phone] Aj Murdock MD Unavailable [phone] Andrew Andrade MD Primary Care Provider [phone] Reason for Visit * Reason Comments Medication Refill Encounter Details Date Type Department Care Team (Late st Contact Info) Description 10/26/2020 Refill [facility] - [facility] - [place] [address] [place] [address] Nirmala Joseph Uyen, PAC [address] [place] [address] Medication Refill Social History Tobacco Use Types Packs/Day Years Used Date Smoking Tobacco: Former Cigarettes 1 25 1 12/04/1976 - 10/04/2002 Smokeless Tobacco: Never Alcohol Use Standard Drinks/Week Comments Yes 6 (1 standard drink = 0.6 oz pur e alcohol) Sexually Active Control Partners Comments Yes Sex and Gender Information Value Date Recorded Sex Assigned at Not on file Legal Sex Male 11:38 PM CDT Gender Identity Not on file Sexual Orientation Not on file 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 No / Unsure 10/26/2020 6:54 AM MICRO COMPUTER SPECIALIST documented as of this encounter Miscellaneous Notes * Telephone Encounter - Mandy Morin CMA - 10/27/2020 11:26 AM MICRO COMPUTER SPECIALIST Pharmacy requesting refill of: Requested Prescriptions Pending Prescriptions Disp Refills ??? azaTHIOprine (IMURAN) 50 MG Tablet [Pharmacy Med Name: azaTHIOprine 50 MG Oral Tablet] 90 Tab 0 Sig: Take 3 tablets by mouth once daily Last fill: 05/21/2020 Patients last OV with GI: 08/31/2020 Next Office Visit with GI: None scheduled O COMPUTER SPECIALIST documented in this encounter Plan of Treatment Not on file documented as of this encounter Visit Diagnoses Diagnosis Crohn's disease with complication, unspecified gastrointestinal tract location (HCC) documented in this encounter Care Teams Parachutist/Combatant Diver Qualified Relationship Specialty Start Date End Date Zeeshan Starks DO [address] [address] PCP - General Internal Medicine 08/28/19 01/07/25 Andrew Andrade MD [address] [place] [address] PCP - General Family Medicine 01/08/25 Aj Murdock MD [address] [place] [address] Consulting Physician Gastroenterology 08/23/22 documented as of this encounter
--- OUTSIDE RECORDS SUMMARY | 2025-06-02 10:53 | XMS_ITS | Clinical Summary ---
Author Organization [facility] Address [address] [place] [address] Care Team Providers Care Railroad Car Cleaner Name Role Phone Zeeshan Starks Primary Care Provider [phone] Source Comments [facility],non-owned Affiliates and Associated Physician Practices is amultiple site organization consisting of ambulatory clinics and hospital sitesin [place], [place], [place] and [place]. This disclosure is being madepursuant to the Care Everywhere program and may not contain all information available regarding this patient. Last updated 18.[facility] Allergies No known active allergies Medications * Be aware that medications may not be up to date on this document. Alwaysverify current medications with the patient. omeprazole (PRILOSEC) 40 MG capsule Take 40 mg by mouth once daily 0 Active lisinopril-hyd roCHLOROthiazi de (PRINZIDE; ZESTORETIC) 10-12.5 MG tablet Take 1 tablet by mouth once daily 0 Active levothyroxine (SYNTHROID) 100 MCG tablet Take 100 mcg by mouth once daily Active folic acid (FOLVITE) 1 MG tablet Take 1 mg by mouth once daily 0 Active ferrous sulfate 325 (65 FE) MG tablet Take 325 mg by mouth once daily 0 Active Vitamin D3 (CHOLECALCIFER OL) 50 MCG (1999 UT) capsule Take 1 capsule by mouth once daily 0 Active azaTHIOprine (IMURAN) 50 MG tablet Take 150 mg by mouth once daily 0 Active adalimumab (HUMIRA PEN) 40 MG/0.4ML injection Inject 40 mg subcutaneously every 14 days 0 Active cyanocobalamin (VITAMIN B-12) 100 MCG tablet Take 1 tablet by mouth once daily Active cgfxs-1-lnwj ethyl esters (LOVAZA) 1 g capsule Take 1 g by mouth once daily Active oxyCODONE, immediate release, (ROXICODONE) 5 MG tablet Take 1 tablet by mouth every 4 hours as needed (Breakthrough pain not controlled by acetaminophen and ibuprofen.) 18 tablet 0 Active Active Problems Problem Noted Date Diagnosed Date Hypercalcemia 09/13/2020 S/P parathyroidectomy 09/13/2020 Hyperparathyroidism 08/26/2020 Immunizations Immunization Administration Dates Next Due iNFLUENZA VACCINE, RECOM-KINNEY, QUADR. (FLUBLOCK QUADRIVALENT; 18Y+) (RIV4) 09/01/2020 Family History Medical History Relation Name Comments Cancer - Other Father Diabetes - Type 1 Father Hypertension Father Cancer - Other Mother Relation Name Status Comments Father Mother Social History Tobacco Use Types Packs/Day Years Used Date Smoking Tobacco: Former Cigarettes 1 29 1 973 - 2001 Smokeless Tobacco: Never Alcohol Use Standard Drinks/Week Comments Yes 2 (1 standard drink = 0.6 oz pur e alcohol) AUDIT-C Answer Date Recorded Q1: How often do you have a drink containing alc ohol? 2-3 times a week 08/26/2020 Q2: How many drinks containi ng alcohol do you have on a typical day when you are drinking? 1 or 2 08/26/2020 Frequency of Binge Drinking Not on file 12/2019 Sex and Gender Information Value Date Recorded Sex Assigned at Not on file Legal Sex Male 8:26 AM CDT Gender Identity Not on file Sexual Orientation Not on file Last Filed Vital Signs Vital Sign Reading Time Taken Comments Blood Pressure 132/89 11/02/2020 1:31 PM REGISTERED SALES ASSISTANT Pulse 86 11/02/2020 1:31 PM REGISTERED SALES ASSISTANT Temperature 37.2 C (99 F) 09/14/2020 8:28 AM CDT Respiratory Rate 16 09/14/2020 8:28 AM CDT Oxygen Saturation 94% 09/14/2020 8:28 AM CDT Inhaled Oxygen Concentration - - Weight 84.8 kg (187 lb) 11/02/2020 1:31 PM REGISTERED SALES ASSISTANT Height 172.7 cm (5' 8) 11/02/2020 1:31 PM REGISTERED SALES ASSISTANT Body Mass Index 28.43 11/02/2020 1:31 PM REGISTERED SALES ASSISTANT Plan of Treatment Health Maintenance Due Date Last Done Comments COLOGUARD (AGES 45-75) - COLON CA SCREENING 1955 COLON MONITORING 1955 COLONOSCOPY - COLON CA SCREENING 1955 CT COLONOGRAPHY - COLON CA SCREENING 1955 Colorectal Cancer Screening 1955 FIT - COLON CA SCREENING 1955 FLEX SIG - COLON CA SCREENING 1955 LIPID TESTING 1955 DTAP/TDAP/TD VACCINES (1 - Tdap) 1974 PNEUMOCOCCAL VACCINE 50+ (1 of 1 - PCV) 2005 ZOSTER VACCINE (1 of 2) 2005 AAA SCREENING 2020 SCREENING FOR DIABETES 08/31/2023 08/31/2020, 2019 COVID-19 VACCINE ( - season) 2024 DEPRESSION SCREENING 11/25/2024 INFLUENZA VACCINE (#1) 2025 09/01/2020 Respiratory Syncytial Virus (RSV) Vaccine Pt: or over 60 yrs (1 - 1-dose 75+ series) 2030 HEPATITIS C SCREENING Completed 10/26/2020 , 10/26/2020, 10/26/2020, Additional history exists HEPATITIS B VACCINE Aged Out No longe r eligible based on patient's age to complete this topic HIB VACCINE Aged Out No longer eligi ble based on patient's age to complete this topic HPV VACCINE Aged Out No longer eligi ble based on patient's age to complete this topic MENINGOCOCCAL (Group B) VACCINE SHARED DECISION-MAKING Aged Out No longer eligible based on patient's age to complete this topic MENINGOCOCCAL GROUPS A/C/Y/W VACCINE Aged Out No longer eligible based on patient's age to complete this topic Insurance [employer] MEDICARE Advance Directives * Full Code (Latest Code Status on File) Date Activated Date Inactivated Comments 09/13/2020 3:20 PM 09/14/2020 10:52 AM * Full Code Date Activated Date Inactivated Comments 09/12/2020 10:11 PM 09/13/2020 3:20 PM Care Teams Railroad Car Cleaner Relationship Specialty Start Date End Date Zeeshan Starks DO [address] [id number] PCP - General Internal Medicine 08/26/20
--- OUTSIDE RECORDS SUMMARY | 2025-06-02 10:53 | XMS_ITS | Encounter Summary ---
Author Organization [facility] Address [address] 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 Requested Prescriptions Pending Prescriptions Disp Refills azaTHIOprine (IMURAN) 50 MG Tablet [Pharmacy Med Name: azaTHIOprine 50 MG Oral Tablet] 90 Tablet 0 Sig: Take 3 tablets by mouth once daily Not Delegated - Off Protocol Failed - 12/04/2023 8:23 AM Failed - This refill cannot be delegated Passed - Visit with relevant provider in past 12 months or upcoming 90 days Recent Visits Date Type Provider Dept 03/28/23 Office Visit Aj Murdock MD [facility] Showing recent visits within past 365 days and meeting all other requirements Future Appointments No visits were found meeting these conditions. Showing future appointments within next 90 days and meeting all other requirements ER WORKER documented in this encounter Plan of Treatment Not on file documented as of this encounter Visit Diagnoses Diagnosis Crohn's disease with complication, unspecified gastrointestinal tract location (HCC) documented in this encounter Care Teams Jacket Preparer Relationship Specialty Start Date End Date Zeeshan Starks DO [address] [facility] [address] [address] PCP - General Internal Medicine 08/28/19 01/07/25 Andrew Andrade MD [address] [place] [id number] PCP - General Family Medicine 01/08/25 Aj Murdock MD [address] [place] [address] Consulting Physician Gastroenterology 08/23/22 documented as of this encounter
[2025-06-02 11:17] LABS: Hematocrit 40.4 % (42.0-52.0); Hemoglobin 14.5 g/dL (14.0-18.0); Immature Granulocyte Percent A 1.0 % (0-0.5); Lymphocytes Absolute Auto 0.49 K/mm3 (0.9-3.2); Mean Corpuscular HGB Conc 35.9 g/dl (32-36); Mean Corpuscular Hemoglobin 32.2 pg (26-34); Mean Corpuscular Volume 89.8 fl (80-100); Nucleated Red Blood Cells Absolute Auto 0.000 K/mm3 (0.0-0.012); Nucleated Red Blood Cells Perc 0.0 % (0.0-0.2); Platelet Count Result 201 k/mm3 (150-375); Red Blood Count 4.50 M/mm3 (4.6-6.20); White Blood Count 5.0 K/mm3 (4.5-10.0)
[2025-06-02 16:51] LABS: Iron 93 ug/dL (49-181)
[2025-06-02 17:08] LABS: Percent Iron Saturation 27 % (20-50)
== END 2025-06-02 10:48 | disposition home or self-care (01) ==
LOC: ANHLAB 10:49
PROVIDERS: PCP Family Medicine; Visit Provider Internal Medicine Hematology & Oncology
DX: D64.9 Anemia, unspecified (principal)
CPT/HCPCS: 36415; 83540; 83550; 85025

== ENCOUNTER 2025-08-24 09:13 | Outpatient (CLI) | payer MEDICARE, SELFPAY ==
--- NOTE | ~2025-08-24 | XR_ITS ---
EXAMINATION: XR finger 3rd RT min 2V, 08/24/2025 9:39 CDT HISTORY: M65.30 - Trigger finger, unspecified finger COMPARISON: No comparisons available. Findings: No acute fracture or malalignment. Moderate to severe degenerative changes Soft tissues unremarkable. Impression: No acute fracture or malalignment. Reviewed, dictated and finalized at location P. Impression: No acute fracture or malalignment.
== END 2025-08-24 09:14 | disposition home or self-care (01) ==
LOC: MICIMG 09:14
PROVIDERS: PCP Family Medicine; Visit Provider Family Medicine
DX: M65.30 Trigger finger, unspecified finger (principal)
CPT/HCPCS: 73140